=== PATIENT | female | born 1995 | race Caucasian/White ===

== ENCOUNTER 2017-04-08 09:43 | Emergency (ER) | payer OTHER ==
[~2017-04-08] VITALS: Ht 160 cm; Wt 50.0 kg
[2017-04-08 09:45] VITALS: BP 126/62; PULSE 76; RESP 14; TEMP 97; O2SAT 97
[2017-04-08] MEDS ORDERED: METF500T PO (10:07)
[2017-04-08] MEDS ORDERED: TRINTAB7 PO (10:07)
[2017-04-08] MEDS ORDERED: methylPREDNISolone SOD SUCC 125 MG/2 ML VIAL IM ONE (10:30)
[2017-04-08] MEDS ORDERED: SODIUM CHLORIDE 0.9% FLUSH 10 ML FLUSH IV FLUSH PRN (10:30)
[2017-04-08] MEDS ORDERED: diphenhydrAMINE HCL 50 MG/ML VIAL IVP ONE (10:30)
--- NOTE | 2017-04-08 10:36 | PD ---
HPI Chief Complaint: Allergic/Adverse Reaction Time Seen by Provider: 10:26 Travel History International Travel<30 days: No Contact w/Intl Traveler<30days: No Traveled to known affect area: No History of Present Illness HPI Patient is a 21-year-old otherwise healthy female presents emergency department for evaluation of hives and lip swelling. Patient states she first noticed some hives on the left side of her neck which started last night, she took an Monica and then when she woke this morning she had lip swelling as well as hives throughout her entire torso lower extremities upper extremities and then she noticed they were coalescing on her neck. The patient cannot think of any exacerbating factors, the only thing that happened to her she ate at [employer] which is never eaten it before but got her "usual order when she goes to a daily". Denies any new detergents denies any shortness of breath choking sensation or difficulty swallowing. States symptoms are mild, gradually worsening, context and associated signs and symptoms as above. PFSH Past Medical History Hx Anticoagulant Therapy: No Cardiovascular Problems: No Chemotherapy: No Cerebrovascular Accident: No Diabetes: No Diminished Hearing: No Medical other: Yes (PCOS, [facility]) Respiratory: No Influenza Vaccination: No ?: Not LMP: I just had my period Past Surgical History Surgical History: No Previous Surgery Hysterectomy: No Social History Alcohol Use: Yes (occ) Tobacco Use: No Substance Use: No Allergies-Medications (Allergen,Severity, Reaction): Coded Allergies: No Known Allergies (Verified Allergy, Unknown, 04/08/17) Reported Meds & Prescriptions Reported Meds & Active Scripts Active Epipen 2-Thee Inj (Epinephrine) 0.3 Mg/0.3 Ml Pfpen 0.3 Mg IM ONCE PRN Medrol Dosepak (Methylprednisolone) 4 Mg Dspk 4 Mg PO DIRECTED Per Pharmacist direction Reported Trinessa (Norgestimate-Ethinyl Estradiol) 0.18/0.215/0.25 mg-35 Mcg Tab 1 Tab PO DAILY Metformin (Metformin HCl) 500 Mg Tab 500 Mg PO BIDPC Review of Systems Except as stated in HPI: all other systems reviewed are Neg Physical Exam Narrative GENERAL: Well-developed well-nourished in no obvious distress. Some mild lip swelling in the inferior lip, also some scattered hives in bilateral upper and lower extremities, there are coalescing on the right neck, there is also some on her trunk and abdomen. SKIN: Focused skin assessment warm/dry. HEAD: Atraumatic. Normocephalic. EYES: Pupils equal and round. No scleral icterus. No injection or drainage. ENT: No nasal bleeding or discharge. Mucous membranes pink and moist. There is no intraoral or posterior oropharynx swelling, no tongue swelling, swallowing is easy, voice is normal according to mother and father. NECK: Trachea midline. No JVD. CARDIOVASCULAR: Regular rate and rhythm. No murmur appreciated. RESPIRATORY: No accessory muscle use. Clear to auscultation. Breath sounds equal bilaterally. GASTROINTESTINAL: Abdomen soft, non-tender, nondistended. Hepatic and splenic margins not palpable. MUSCULOSKELETAL: No obvious deformities. No clubbing. No cyanosis. No edema. NEUROLOGICAL: Awake and alert. No obvious cranial nerve deficits. Motor grossly within normal limits. Normal speech. PSYCHIATRIC: Appropriate mood and affect; insight and judgment normal. Data Data Last Documented VS Vital Signs Date Time Temp Pulse Resp B/P (MAP) Pulse Ox O2 Delivery O2 Flow Rate FiO2 04/08/17 13:04 72 13 108/68 (81) 98 Room Air 04/08/17 09:45 97.0 Orders Orders Ecg Monitoring (04/08/17 10:26) Iv Access Insert/Monitor (04/08/17 10:26) Oximetry (04/08/17 10:26) Diphenhydramine Inj (Benadryl Inj) (04/08/17 10:30) Methylprednisolone So Succ Inj (Solumedr (04/08/17 10:30) Sodium Chloride 0.9% Flush (Ns Flush) (04/08/17 10:30) Methylprednisolone So Succ Inj (Solumedr (04/08/17 10:45) Ed Discharge Order (04/08/17 12:31) [facility] Medical Decision Making Medical Screen Exam Complete: Yes Emergency Medical Condition: Yes Differential Diagnosis Hives, angioedema, anaphylaxis is been excluded clinically, airway compromise is been excluded clinically Narrative Course Patient room to the emergency department, she was observed in the emergency department after steroids and Benadryl for 2 hours, mother thinks that the lip swelling has increased just a little bit and I have observed her and I do not see the change, she was offered additional observation time in the emergency department versus admission at this time she feels comfortable enough going home her pruritus has been relieved. I discussed with her symptomatic management the use of an EpiPen and when his abuse and when to call 9 1 including any airway compromise. Discussed symptomatic management, follow-up with a primary care physician or an trimmer climber and discuss return to ED criteria. She stable for discharge. Diagnosis Primary Impression: Hives Additional Impression: Angioedema Med/Other Pt SpecificInfo: Prescription(s) given Scripts Epinephrine Inj (Epipen 2-Thee Inj) 0.3 Mg/0.3 Ml Pfpen 0.3 MG IM ONCE Y for ALLERGIC REACTION, #1 PACK 0 Refills Prov: Nba Ponce MD 04/08/17 Methylprednisolone Dosepak (Medrol Dosepak) 4 Mg Dspk 4 MG PO DIRECTED, #1 DSPK 0 Refills Per Pharmacist direction Prov: Nba Ponce MD 04/08/17 Disposition: 01 DISCHARGE HOME Condition: Stable Nba Ponce MD Apr 08, 2017 10:36
[2017-04-08 10:37] VITALS: O2SAT 98
[2017-04-08] MEDS ORDERED: methylPREDNISolone SOD SUCC 125 MG/2 ML VIAL IV PUSH ONE (10:45)
[2017-04-08 11:09] VITALS: BP 98/62; PULSE 64; RESP 13; O2SAT 98
[2017-04-08] MEDS ORDERED: MEDR4PAK PO (11:20)
[2017-04-08] MEDS ORDERED: EPIP0.3I IM (11:20)
[2017-04-08 13:04] VITALS: BP 108/68; PULSE 72; RESP 13; O2SAT 98
== END 2017-04-08 13:05 | disposition home or self-care (01) ==
LOC: NEPE 09:43
DX: T78.3XXA Angioneurotic edema, initial encounter (principal)
CPT/HCPCS: 96374; 96375; 99284; J1200; J2930